=== PATIENT | male | born 1950 | race Caucasian/White ===

== ENCOUNTER 2023-04-08 14:22 | Outpatient (RCR) | payer OTHER, SELFPAY ==
[2023-04-08 14:35] VITALS: BP 117/76
[2023-04-08] MEDS: NUCALA 100 MG SC (14:43)
== END 2023-04-27 23:59 | disposition home or self-care (01) ==
LOC: OID 14:22
PROVIDERS: ATTENDING PHYSICIAN Internal Medicine; FAMILY PHYSICIAN Family Medicine
DX: J45.50 Severe persistent asthma, uncomplicated (principal)
CPT/HCPCS: 96372; J2182

== ENCOUNTER 2023-05-06 14:23 | Outpatient (RCR) | payer OTHER, SELFPAY ==
[2023-05-06 14:36] VITALS: BP 100/83
[2023-05-06] MEDS: NUCALA 1 MG SC (14:44)
== END 2023-05-09 09:35 | disposition home or self-care (01) ==
LOC: OID 14:23
PROVIDERS: ATTENDING PHYSICIAN Internal Medicine; FAMILY PHYSICIAN Family Medicine
DX: J45.50 Severe persistent asthma, uncomplicated (principal)
CPT/HCPCS: 96372; J2182

== ENCOUNTER 2023-06-03 14:11 | Outpatient (RCR) | payer OTHER, SELFPAY ==
[2023-06-03 14:40] VITALS: BP 102/64
[2023-06-03] MEDS: NUCALA 1 MG SC (14:48)
== END 2023-06-06 08:15 | disposition home or self-care (01) ==
LOC: OID 14:11
PROVIDERS: ATTENDING PHYSICIAN Internal Medicine; FAMILY PHYSICIAN Family Medicine
DX: J45.50 Severe persistent asthma, uncomplicated (principal)
CPT/HCPCS: 96372; J2182

== ENCOUNTER 2023-07-01 14:25 | Outpatient (RCR) | payer OTHER, SELFPAY ==
[2023-07-01 15:04] VITALS: BP 124/71
[2023-07-01] MEDS: NUCALA 1 MG SC (15:12)
== END 2023-07-04 11:11 | disposition home or self-care (01) ==
LOC: OID 14:25
PROVIDERS: ATTENDING PHYSICIAN Internal Medicine; FAMILY PHYSICIAN Family Medicine
DX: J45.50 Severe persistent asthma, uncomplicated (principal)
CPT/HCPCS: 96372; J2182

== ENCOUNTER 2023-07-29 14:28 | Outpatient (RCR) | payer OTHER, SELFPAY ==
[2023-07-29 14:48] VITALS: BP 115/78
[2023-07-29] MEDS: NUCALA 1 MG SC (14:55)
== END 2023-08-25 15:47 | disposition home or self-care (01) ==
LOC: OID 14:28
PROVIDERS: ATTENDING PHYSICIAN Internal Medicine; FAMILY PHYSICIAN Family Medicine
DX: J45.50 Severe persistent asthma, uncomplicated (principal)
CPT/HCPCS: 96372; J2182

== ENCOUNTER 2023-08-30 14:28 | Outpatient (RCR) | payer OTHER, SELFPAY ==
[2023-08-30 14:36] VITALS: BP 133/68
[2023-08-30] MEDS: NUCALA 1 MG SC (14:43)
== END 2023-08-31 09:10 | disposition home or self-care (01) ==
LOC: OID 14:28
PROVIDERS: ATTENDING PHYSICIAN Internal Medicine; FAMILY PHYSICIAN Family Medicine
DX: J45.50 Severe persistent asthma, uncomplicated (principal)
CPT/HCPCS: 96372; J2182

== ENCOUNTER 2023-10-25 14:22 | Outpatient (RCR) | payer OTHER, SELFPAY ==
[2023-09-27 14:35] VITALS: BP 106/73
[2023-09-27] MEDS: NUCALA 1 MG SC (14:42)
[2023-10-25 14:35] VITALS: BP 128/76
[2023-10-25] MEDS: NUCALA 1 MG SC (14:49)
== END 2023-10-26 23:59 | disposition home or self-care (01) ==
LOC: OID 14:22
PROVIDERS: ATTENDING PHYSICIAN Internal Medicine; FAMILY PHYSICIAN Family Medicine
DX: J45.50 Severe persistent asthma, uncomplicated (principal)
CPT/HCPCS: 96372; J2182

== ENCOUNTER 2023-11-22 14:27 | Outpatient (RCR) | payer OTHER, SELFPAY ==
[2023-11-22 14:35] VITALS: BP 128/65
[2023-11-22] MEDS: NUCALA 1 MG SC (14:44)
== END 2023-11-23 08:19 | disposition home or self-care (01) ==
LOC: OID 14:27
PROVIDERS: ATTENDING PHYSICIAN Internal Medicine; FAMILY PHYSICIAN Family Medicine
DX: J45.50 Severe persistent asthma, uncomplicated (principal)
CPT/HCPCS: 96372; J2182

== ENCOUNTER 2023-12-20 14:27 | Outpatient (RCR) | payer OTHER, SELFPAY ==
[2023-12-20 14:30] VITALS: BP 135/70
[2023-12-20] MEDS: NUCALA 1 MG SC (14:42)
== END 2023-12-21 09:00 | disposition home or self-care (01) ==
LOC: OID 14:27
PROVIDERS: ATTENDING PHYSICIAN Internal Medicine; FAMILY PHYSICIAN Family Medicine
DX: J45.50 Severe persistent asthma, uncomplicated (principal)
CPT/HCPCS: 96372; J2182

== ENCOUNTER 2024-01-17 14:21 | Outpatient (RCR) | payer OTHER, SELFPAY ==
[2024-01-17 14:33] VITALS: BP 101/71
[2024-01-17] MEDS: NUCALA 1 MG SC (14:43)
== END 2024-01-18 08:26 | disposition home or self-care (01) ==
LOC: OID 14:21
PROVIDERS: ATTENDING PHYSICIAN Internal Medicine; FAMILY PHYSICIAN Family Medicine
DX: J45.50 Severe persistent asthma, uncomplicated (principal)
CPT/HCPCS: 96372; J2182

== ENCOUNTER 2024-01-19 16:19 | Emergency (ER) | payer OTHER, SELFPAY ==
[2024-01-19 16:20] VITALS: BP 139/84
--- NOTE | 2024-01-19 17:13 | ED.GENMED ---
History of Present Illness
General
Chief Complaint: Musculo-Skeletal Complaint
Source: patient
Time Seen by Provider: 01/19/24 17:00
History of Present Illness
History of Present Illness:
73yoM with a history of asthma, hypertension, and hyperlipidemia presenting for evaluation of neck pain. Patient started to have neck pain about 3 days ago. The pain initially started on the right lateral neck but is now also present on the left.
Pain is worse with certain positions. He believes his pain is muscular. He denies any trauma to the area. He has been using Motrin and heat with improvement. He denies any fevers, photophobia, nausea, vomiting, chest pain, shortness of breath. No
weakness or paresthesias of the extremities.
Past History
Past History
ED Past Medical History: Asthma and HTN
Social History
Tobacco: Non-smoker
Personal:
Living: with family
Employment: Retired
Phy Exam
General Physical Exam
General Presentation: well appearing and no apparent distress
General age: appears stated age
General Skin: warm and dry
General Habitus: normal
General Mental: alert
ENT Exam
ENT Exam: normocephalic and other (+Tenderness to cervical musculature bilaterally. No spinous process tenderness. He has pain with rotation of the neck to the L. No nuchal rigidity. )
Cardiovascular Exam
Cardiovascular Exam: normal peripheral pulses (2+ radial pulses bilaterally)
Ideal Coma Scale
Eye Opening: Spontaneous
Verbal Response: Oriented
Motor Response: Obeys Commands
GCS Total Score: 15
Skin Exam
Skin Exam: normal color and warm/dry
Psychiatric Exam
Psychiatric Exam: normal mood/affect
Course
Orders/Labs/Results
Orders:
Orders
01/19/24 17:12
Cervical Spine 4 or 5 Vw [CR Cervical Spine 4 Or 5 Vw] Urgent
Comment:
Reason For Exam: atraumatic neck pain
Vital Signs
Initial and Last Documented VS:
Initial Vital Signs
Temp Pulse Resp BP Pulse Ox
97.9 F 89 20 139/84 96
01/19/24 16:20 01/19/24 16:20 01/19/24 16:20 01/19/24 16:20 01/19/24 16:20
Last Documented Vital Signs
Temp Pulse Resp BP Pulse Ox
97.9 F 84 18 142/78 98
01/19/24 16:20 01/19/24 18:22 01/19/24 18:22 01/19/24 18:22 01/19/24 18:22
MDM/Problems Addressed
Differential Diagnosis Includes:
73yoM here with atraumatic neck pain x 3 days. Initially present on the R and now on the L. Worse with certain movements. Improves with heat and ibuprofen. No CP/SOB. No paresthesias or weakness of the upper extremities. VSS. There is reproducible
tenderness in the cervical musculature bilaterally. No nuchal rigidity noted. Clinical presentation consistent with a cervical strain. No evidence of cervical radiculopathy or meningitis.
Patient requesting x-rays which were ordered. Imaging shows degenerative changes without fractures. Recommended continued supportive care. Advised f/u with PCP and ED return precautions discussed. He expressed understanding and is agreeable to plan.
He was discharged in stable condition.
*Critical Care Note
Total Time (30-74mins, 75-104mins- exclusive of procedures): Not Applicable
ED Attending Note
-
Portions of this chart may have been created with voice recognition software.� Occasional wrong word or��sound alike� substitutions may have occurred due to the inherent limitations of voice recognition software.
Discharge Plan
Departure
Patient Disposition: Home (Routine Discharge)
Date of Disposition: 01/19/24
Time of Disposition: 18:10
Patient with high blood pressure during this ER visit?: No
Discharge Problem:
Cervical strain
Instructions: Cervical Muscle Strain
Prescriptions:
No Action
atorvastatin 10 MG tablet
10 mg PO DAILY
albuterol sulfate 1 PUFF HFA aerosol inhaler
1 puff inhalation R Q4HPRN PRN (Reason: wheezing)
fluticasone propionate 1 SPRAY spray,suspension
2 spray intranasal PRN PRN (Reason: ALLERGIES)
finasteride 5 MG tablet
5 mg PO HS
alfuzosin 10 MG tablet extended release 24 hr
10 mg PO HS
budesonide-formoterol [Symbicort] 1 PUFF HFA aerosol inhaler
2 puff inhalation BID
losartan 50 MG tablet
50 mg PO DAILY
dicyclomine 10 MG capsule
5 mg PO DAILY
ammonium lactate 1 APPLIC lotion
1 applic S PRN PRN (Reason: DRY FEET)
Nucala 100 MG/ML recon soln
100 mg SC .[id number]
Patient Comments:
RECEIVES IN [facility]
cetirizine [Zyrtec] 10 MG tablet
10 mg PO HS
Colace 50 mg Capsule
50 mg PO HS
multivitamin Tablet
1 tab PO DAILY
Align 4 mg Capsule
4 mg PO DAILY
Metamucil 3.4 gram/5.4 gram Powder
3 tsp PO HS
Gemtesa 75 mg Tablet
755 mg PO HS
famotidine [Pepcid] 40 mg Tablet
40 mg PO HS
Referrals:
Tez Muller MD [Family Provider] -
Activity Restrictions/Additional Instructions:
Apply heat and massage affected area. Take Tylenol and ibuprofen as needed.
Please follow-up with your family doctor if symptoms persist. Return to the ER with any new or worsening symptoms.
Interventions
Interventions:
*Risk Screen - Suicide Last Done: 01/19/24 16:20
*General Assessment Last Done: 01/19/24 16:20
*Neglect/Abuse Screening Last Done: 01/19/24 16:20
*Nursing Disposition Last Done: 01/19/24 18:24
ED-Musculoskeletal Assessment Last Done: 01/19/24 18:22
Discharge Date and Time
Discharge Date/Time: 01/19/24 18:25
Print Language: [place]
[2024-01-19 18:22] VITALS: BP 142/78
== END 2024-01-19 18:25 | disposition home or self-care (01) ==
LOC: EMR 16:19
PROVIDERS: EMERGENCY PHYSICIAN Emergency Medicine; FAMILY PHYSICIAN Family Medicine
DX: S16.1XXA Strain of muscle, fascia and tendon at neck level, initial encounter (principal); X58.XXXA Exposure to other specified factors, initial encounter; J45.909 Unspecified asthma, uncomplicated; I10 Essential (primary) hypertension; E78.00 Pure hypercholesterolemia, unspecified
CPT/HCPCS: 99283; 72050

== ENCOUNTER 2024-02-14 14:23 | Outpatient (RCR) | payer OTHER, SELFPAY ==
[2024-02-14 14:41] VITALS: BP 116/84
[2024-02-14] MEDS: NUCALA 1 MG SC (14:50)
== END 2024-02-15 11:00 | disposition home or self-care (01) ==
LOC: OID 14:23
PROVIDERS: ATTENDING PHYSICIAN Internal Medicine; FAMILY PHYSICIAN Family Medicine
DX: J45.50 Severe persistent asthma, uncomplicated (principal)
CPT/HCPCS: 96372; J2182

== ENCOUNTER 2024-03-13 13:51 | Outpatient (RCR) | payer OTHER, SELFPAY ==
[2024-03-13 14:02] VITALS: BP 144/67
[2024-03-13] MEDS: NUCALA 1 MG SC (14:09)
== END 2024-03-14 09:25 | disposition home or self-care (01) ==
LOC: OID 13:51
PROVIDERS: ATTENDING PHYSICIAN Internal Medicine; FAMILY PHYSICIAN Family Medicine
DX: J45.50 Severe persistent asthma, uncomplicated (principal)
CPT/HCPCS: 96372; J2182

== ENCOUNTER 2024-04-10 14:21 | Outpatient (RCR) | payer OTHER, SELFPAY ==
[2024-04-10 14:25] VITALS: BP 135/74
[2024-04-10] MEDS: NUCALA 1 MG SC (14:39)
== END 2024-04-11 09:16 | disposition home or self-care (01) ==
LOC: OID 14:21
PROVIDERS: ATTENDING PHYSICIAN Internal Medicine; FAMILY PHYSICIAN Family Medicine
DX: J45.50 Severe persistent asthma, uncomplicated (principal)
CPT/HCPCS: 96372; J2182

== ENCOUNTER → 2024-04-20 13:48 | Outpatient (REF) | payer OTHER, SELFPAY | LOC: HWRAD 13:48 | PROVIDERS: ATTENDING PHYSICIAN Nurse Practitioner; FAMILY PHYSICIAN Family Medicine | DX: I77.810 Thoracic aortic ectasia (principal) | CPT/HCPCS: 71250 ==

== ENCOUNTER 2024-05-08 14:24 | Outpatient (RCR) | payer OTHER, SELFPAY ==
[2024-05-08 14:30] VITALS: BP 130/76
[2024-05-08] MEDS: NUCALA 1 MG SC (14:44)
== END 2024-05-25 23:59 | disposition home or self-care (01) ==
LOC: OID 14:24
PROVIDERS: ATTENDING PHYSICIAN Internal Medicine; FAMILY PHYSICIAN Family Medicine
DX: J45.50 Severe persistent asthma, uncomplicated (principal)
CPT/HCPCS: 96372; J2182

== ENCOUNTER 2024-06-11 14:24 | Outpatient (RCR) | payer OTHER, SELFPAY ==
[2024-06-11 14:36] VITALS: BP 138/68
[2024-06-11] MEDS: NUCALA 1 MG SC (14:48)
== END 2024-06-25 23:59 | disposition home or self-care (01) ==
LOC: OID 14:24
PROVIDERS: ATTENDING PHYSICIAN Internal Medicine; FAMILY PHYSICIAN Family Medicine
DX: J45.50 Severe persistent asthma, uncomplicated (principal)
CPT/HCPCS: 96372; J2182

== ENCOUNTER → 2024-06-28 13:40 | Outpatient (REF) | payer OTHER, SELFPAY | LOC: HWRAD 13:40 | PROVIDERS: ATTENDING PHYSICIAN Otolaryngology; FAMILY PHYSICIAN Family Medicine | DX: J33.0 Polyp of nasal cavity (principal) | CPT/HCPCS: 70486 ==

== ENCOUNTER 2024-07-06 06:13 | Day surgery (SDC) | payer OTHER, SELFPAY | END 2024-07-06 11:04 | disposition home or self-care (01) | LOC: GI 06:13 | PROVIDERS: ATTENDING PHYSICIAN Specialist | DX: Z12.11 Encounter for screening for malignant neoplasm of colon (principal); K63.5 Polyp of colon; K57.30 Diverticulosis of large intestine without perforation or abscess without bleeding; Z86.0101 Personal history of adenomatous and serrated colon polyps | CPT/HCPCS: 45385; 88305 ==

== ENCOUNTER 2024-07-10 14:28 | Outpatient (RCR) | payer OTHER, SELFPAY ==
[2024-07-10 14:42] VITALS: BP 137/79
[2024-07-10] MEDS: NUCALA 1 MG SC (14:49)
== END 2024-07-11 08:53 | disposition home or self-care (01) ==
LOC: OID 14:28
PROVIDERS: ATTENDING PHYSICIAN Internal Medicine; FAMILY PHYSICIAN Family Medicine
DX: J45.50 Severe persistent asthma, uncomplicated (principal)
CPT/HCPCS: 96372; J2182

== ENCOUNTER 2024-08-07 14:21 | Outpatient (RCR) | payer OTHER, SELFPAY ==
[2024-08-07 14:31] VITALS: BP 118/79
[2024-08-07] MEDS: NUCALA 1 MG SC (14:43)
== END 2024-08-08 09:16 | disposition home or self-care (01) ==
LOC: OID 14:21
PROVIDERS: ATTENDING PHYSICIAN Internal Medicine; FAMILY PHYSICIAN Family Medicine
DX: J45.50 Severe persistent asthma, uncomplicated (principal)
CPT/HCPCS: 96372; J2182

== ENCOUNTER 2024-09-06 14:24 | Outpatient (RCR) | payer OTHER, SELFPAY ==
[2024-09-06 14:25] VITALS: BP 125/82
[2024-09-06] MEDS: NUCALA 1 MG SC (14:41)
== END 2024-09-07 10:01 | disposition home or self-care (01) ==
LOC: OID 14:24
PROVIDERS: ATTENDING PHYSICIAN Internal Medicine; FAMILY PHYSICIAN Family Medicine
DX: J45.50 Severe persistent asthma, uncomplicated (principal)
CPT/HCPCS: 96372; J2182

== ENCOUNTER 2024-10-04 14:19 | Outpatient (RCR) | payer OTHER, SELFPAY ==
[2024-10-04 14:40] VITALS: BP 121/69
[2024-10-04] MEDS: NUCALA 1 MG SC (14:59)
== END 2024-10-05 09:07 | disposition home or self-care (01) ==
LOC: OID 14:19
PROVIDERS: ATTENDING PHYSICIAN Internal Medicine; FAMILY PHYSICIAN Family Medicine
DX: J45.50 Severe persistent asthma, uncomplicated (principal)
CPT/HCPCS: 96372; J2182

== ENCOUNTER 2024-11-01 14:23 | Outpatient (RCR) | payer OTHER, SELFPAY ==
[2024-11-01 14:51] VITALS: BP 125/72
[2024-11-01] MEDS: NUCALA 1 MG SC (15:04)
== END 2024-11-02 08:51 | disposition home or self-care (01) ==
LOC: OID 14:23
PROVIDERS: ATTENDING PHYSICIAN Internal Medicine; FAMILY PHYSICIAN Family Medicine
DX: J45.50 Severe persistent asthma, uncomplicated (principal)
CPT/HCPCS: 96372; J2182

== ENCOUNTER 2024-11-29 14:24 | Outpatient (RCR) | payer OTHER, SELFPAY ==
[2024-11-29 14:35] VITALS: BP 112/66
[2024-11-29] MEDS: NUCALA 1 MG SC (14:47)
== END 2024-11-30 10:59 | disposition home or self-care (01) ==
LOC: OID 14:24
PROVIDERS: ATTENDING PHYSICIAN Internal Medicine; FAMILY PHYSICIAN Family Medicine
DX: J45.50 Severe persistent asthma, uncomplicated (principal)
CPT/HCPCS: 96372; J2182

== ENCOUNTER 2025-01-03 14:23 | Outpatient (RCR) | payer OTHER, SELFPAY ==
[2025-01-03 14:42] VITALS: BP 122/69
[2025-01-03] MEDS: NUCALA 1 MG SC (14:52)
== END 2025-01-04 10:27 | disposition home or self-care (01) ==
LOC: OID 14:23
PROVIDERS: ATTENDING PHYSICIAN Internal Medicine; FAMILY PHYSICIAN Family Medicine
DX: J45.50 Severe persistent asthma, uncomplicated (principal)
CPT/HCPCS: 96372; J2182

== ENCOUNTER 2025-01-31 14:17 | Outpatient (RCR) | payer OTHER, SELFPAY ==
[2025-01-31 14:38] VITALS: BP 129/64
[2025-01-31] MEDS: NUCALA 1 MG SC (14:59)
== END 2025-02-24 23:59 | disposition home or self-care (01) ==
LOC: OID 14:17
PROVIDERS: ATTENDING PHYSICIAN Internal Medicine; FAMILY PHYSICIAN Family Medicine
DX: J45.50 Severe persistent asthma, uncomplicated (principal)
CPT/HCPCS: 96372; J2182

== ENCOUNTER 2025-02-28 14:27 | Outpatient (RCR) | payer OTHER, SELFPAY ==
[2025-02-28 14:45] VITALS: BP 132/82
[2025-02-28] MEDS: NUCALA 1 MG SC (14:51)
== END 2025-03-01 08:51 | disposition home or self-care (01) ==
LOC: OID 14:27
PROVIDERS: ATTENDING PHYSICIAN Internal Medicine; FAMILY PHYSICIAN Family Medicine
DX: J45.50 Severe persistent asthma, uncomplicated (principal)
CPT/HCPCS: 96372; J2182